=== PATIENT | male | born 1965 | race Caucasian/White ===

== ENCOUNTER 2018-01-27 21:35 | Inpatient (IN) | payer OTHER ==
[~2018-01-27] VITALS: Ht 193 cm; Wt 90.7 kg
[2018-01-27 21:42] VITALS: Ht 193 cm; Wt 90.7 kg
[2018-01-27 22:55] LABS: BASOPHIL % 0.4 % (0-2); PLATELET COUNT 268 x10^3mcL (130-400); RED CELL DISTRIBUTION WIDTH 13.4 % (11.5-14.5)
[2018-01-27 22:58] LABS: CALCIUM 8.6 mg/dL (8.5-10.1); CARBON DIOXIDE 27.9 mmol/L (21-32); CHLORIDE SERUM 102 mmol/L (98-107); GFR1 > 60 mL/min; GLUCOSE SERUM 117 mg/dL (74-106); POTASSIUM SERUM 3.7 mmol/L (3.5-5.1); SODIUM SERUM 126 mmol/L (136-145)
[2018-01-27 23:11] LABS: ALBUMIN 3.6 g/dL (3.4-5.0); ALKALINE PHOSPHATASE 84 U/L (46-116); ALT/SGPT 28 U/L (16-63); AST/SGOT 21 U/L (15-37); BILIRUBIN TOTAL 0.26 mg/dL (0.20-1.00); FREE T4 0.91 ng/dL (0.76-1.46); TOTAL PROTEIN, SERUM 6.9 g/dL (6.4-8.2)
[2018-01-28] MEDS ORDERED: TOPROL XL25 MG PO (00:33)
[2018-01-28 01:06] VITALS: BP 129/76
[2018-01-28 03:26] LABS: HDL CHOLESTEROL 39 mg/dL (40-60); PHOSPHOROUS 3.1 mg/dL (2.5-4.9)
[2018-01-28 03:37] LABS: FREE T4 0.9 ng/dL (0.76-1.46); FREE THYROXINE INDEX 2.4 ug/dL (1.4-4.5); T4(THYROXINE) 7.2 ug/dL (4.7-13.3)
[2018-01-28 03:39] LABS: CHOLESTEROL 245 mg/dL (<200); CHOLESTEROL/HDL RATIO 6.3; TRIGLYCERIDES 414 mg/dL (<150)
[2018-01-28 06:21] LABS: CALCIUM 8.5 mg/dL (8.5-10.1); CARBON DIOXIDE 29.2 mmol/L (21-32); CHLORIDE SERUM 104 mmol/L (98-107); CREATININE SERUM 0.9 mg/dL (0.7-1.3); GFR1 > 60 mL/min; GLUCOSE SERUM 96 mg/dL (74-106); POTASSIUM SERUM 4.2 mmol/L (3.5-5.1); SODIUM SERUM 139 mmol/L (136-145)
[2018-01-28 07:07] LABS: BASOPHIL % 0.3 % (0-2); PLATELET COUNT 262 x10^3mcL (130-400); RED CELL DISTRIBUTION WIDTH 13.4 % (11.5-14.5)
[2018-01-28 08:02] LABS: microscopic required? NO
[2018-01-28 08:41] LABS: AMPHETAMINE QUAL UR NONE DETECTED (NEG <=1000)
[2018-01-28 08:47] LABS: UA SPECIFIC GRAVITY 1.025 (1.005-1.035); urine erythrocyte NEGATIVE (NEGATIVE)
[2018-01-28 09:35] LABS: T3 TOTAL 1.11 ng/mL
[2018-01-28 09:53] VITALS: BP 127/75
[2018-01-28 13:59] VITALS: BP 120/70
[2018-01-28 17:19] VITALS: BP 115/68
[2018-01-28 21:03] VITALS: BP 105/61
[2018-01-29 06:05] VITALS: BP 101/69
[2018-01-29 06:39] LABS: CALCIUM 8.5 mg/dL (8.5-10.1); CARBON DIOXIDE 28.2 mmol/L (21-32); CHLORIDE SERUM 107 mmol/L (98-107); CREATININE SERUM 0.9 mg/dL (0.7-1.3); GFR1 > 60 mL/min; GLUCOSE SERUM 88 mg/dL (74-106); PHOSPHOROUS 3.8 mg/dL (2.5-4.9); POTASSIUM SERUM 4.3 mmol/L (3.5-5.1); SODIUM SERUM 142 mmol/L (136-145)
[2018-01-29 06:55] LABS: BASOPHIL % 0.3 % (0-2); PLATELET COUNT 253 x10^3mcL (130-400)
[2018-01-29] MEDS ORDERED: LIPI10 PO (08:48)
[2018-01-29 10:33] VITALS: BP 108/66
[2018-01-29 12:32] VITALS: BP 108/66
== END 2018-01-29 14:25 | disposition home or self-care (01) | DRG 392 ==
LOC: ED 21:35 → DU 01-28 00:20
PROVIDERS: Emergency Medicine; Family Medicine; Family Medicine Sports Medicine
DX: K21.9 Gastro-esophageal reflux disease without esophagitis (principal); E87.1 Hypo-osmolality and hyponatremia; I48.91 Unspecified atrial fibrillation; Z88.8 Allergy status to other drugs, medicaments and biological substances; G89.29 Other chronic pain; M54.9 Dorsalgia, unspecified; E78.5 Hyperlipidemia, unspecified
CPT/HCPCS: 83880; 84439; J7030; Q0092